=== PATIENT | female | born 1965 | race Caucasian/White ===

== ENCOUNTER 2017-08-11 05:30 | Observation (INO) | payer OTHER, BC ==
[2017-08-11] MEDS ORDERED: Iopamidol 612 MG/ML 100 ML Bottle IVPUSH ONE (05:45)
[2017-08-11] MEDS ORDERED: HYDROmorphone 1 MG/ML Syringe IVPUSH ONE ×2 (05:46→08:25)
[2017-08-11] MEDS ORDERED: Ondansetron 4 MG/2 ML SDV IV ONE ×2 (05:46→07:20)
[2017-08-11] MEDS ORDERED: Sodium Chloride 0.9% 1,000 ML IV ONE (05:47)
[2017-08-11] MEDS ORDERED: Morphine 4 MG/ML Syringe IVPUSH ONE (05:58)
--- NOTE | 2017-08-11 06:13 | EDM.PDOC ---
<Elena Evans - Last Filed: 08/11/17 06:04> ED HPI GENERAL MEDICAL PROBLEM - General Chief Complaint: Abdominal Pain Stated Complaint: ABD PAIN [id number] Time Seen by Provider: 08/11/17 05:45 Source of Information: Reports: Patient History Limitations: Reports: No Limitations - History of Present Illness INITIAL COMMENTS - FREE TEXT/NARRATIVE: ED ambulatory with sudden onset of RLQ abdominal pain at 230, one emesis one loose stool. Pain constant. Fever/chills. Nauseated. Right Lower Abdomen Pain Score (Numeric/FACES): 6 - Related Data Allergies Allergy/AdvReac Type Severity Reaction Status Date / Time No Known Allergies Allergy Verified 08/11/17 05:41 Home Meds: Home Meds . 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: - Past Surgical History GI Surgical History: Reports: Hernia Repair/Other Female Surgical History: Reports: Hysterectomy Social & Family History - Tobacco Use Smoking Status *Q: Never Smoker Second Hand Smoke Exposure: No - Caffeine Use Caffeine Use: Reports: None - Recreational Drug Use Recreational Drug Use: No ED ROS GENERAL - Review of Systems Review Of Systems: See Below Constitutional: Reports: Fever, Chills HEENT: Reports: No Symptoms Respiratory: Reports: No Symptoms Cardiovascular: Reports: No Symptoms Endocrine: Reports: No Symptoms GI/Abdominal: Reports: Abdominal Pain, Diarrhea, Nausea, Vomiting : Reports: No Symptoms Musculoskeletal: Reports: No Symptoms Skin: Reports: No Symptoms Neurological: Reports: No Symptoms ED EXAM, GI/ABD - Physical Exam Exam: See Below Exam Limited By: No Limitations General Appearance: Alert, Moderate Distress Eyes: Bilateral: EOMI Ears: Normal External Exam Nose: Normal Inspection Throat/Mouth: Normal Inspection Head: Atraumatic, Normocephalic Respiratory/Chest: No Respiratory Distress, Lungs Clear, Normal Breath Sounds Cardiovascular: Normal Peripheral Pulses, Regular Rate, Rhythm GI/Abdominal Exam: Normal Bowel Sounds, Soft, Guarding (generalized lower abdomen tender with light, greater RLQ with guarding), Tender. No: Distended Back Exam: Normal Inspection. No: CVA Tenderness (L), CVA Tenderness (R) Extremities: Normal Inspection Neurological: Alert, Oriented Psychiatric: Normal Affect Skin Exam: Warm, Dry, Intact, Normal Color Course - Vital Signs Last Recorded V/S: Last Vital Signs Temp 98.1 F 08/11/17 08:09 Pulse 60 08/11/17 08:09 Resp 18 08/11/17 08:09 BP 115/70 08/11/17 08:09 Pulse Ox 60 L 08/11/17 08:09 - Orders/Labs/Meds Labs: Laboratory Tests 08/11/17 08/11/17 08/11/17 Range/Units 05:55 05:55 05:55 WBC 15.9 H (5.0-10.0) 10^3/uL RBC 4.45 (4.2-5.4) 10^6/uL Hgb 13.8 (12.0-16.0) g/dL Hct 41.6 (37.0-47.0) % MCV 93.5 (80-100) fL MCH 31.0 (27.0-34.0) pg MCHC 33.2 (33.0-35.0) g/dL Plt Count 257 (150-450) 10^3/uL Neut % (Auto) 88.5 H (42.2-75.2) % Lymph % (Auto) 5.7 L (20.5-50.1) % [place] % (Auto) 5.0 (2-8) % Eos % (Auto) 0.7 L (1.0-3.0) % Baso % (Auto) 0.1 (0.0-1.0) % Sodium 134 L (135-145) mmol/L Potassium 3.8 (3.6-5.0) mmol/L Chloride 103 (101-111) mmol/L Carbon Dioxide 21.0 (21.0-31.0) mmol/L Anion Gap 13.8 BUN 18 (7-18) mg/dL Creatinine 0.8 (0.6-1.3) mg/dL Est Cr Clr Drug Dosing 81.81 mL/min Estimated GFR (MDRD) > 60 BUN/Creatinine Ratio 22.50 Glucose 127 H (74-105) mg/dL Lactic Acid 1.5 (0.5-2.2) mmol/L Calcium 9.0 (8.4-10.2) mg/dl Total Bilirubin 0.6 (0.2-1.0) mg/dL AST 23 (10-42) IU/L ALT 20 (10-60) IU/L Alkaline Phosphatase 61 (42-121) IU/L Total Protein 7.1 (6.7-8.2) g/dl Albumin 4.2 (3.2-5.5) g/dl Globulin 2.9 Albumin/Globulin Ratio 1.45 Amylase 48 (28-100) U/L Lipase 22 (22-51) U/L Urine Color (YELLOW) Urine Appearance (CLEAR) Urine pH (5.0-9.0) Ur Specific [place] (1.005-1.030) Urine Protein (NEGATIVE) Urine Glucose (UA) (NEGATIVE) Urine Ketones (NEGATIVE) Urine Occult Blood (NEGATIVE) Urine Nitrite (NEGATIVE) Urine Bilirubin (NEGATIVE) Urine Urobilinogen (0.2-1.0) mg/dL Ur Leukocyte Esterase (NEGATIVE) Urine RBC /HPF Urine WBC (0-5/HPF) /HPF Ur Epithelial Cells /HPF Urine Bacteria (0-FEW/HPF) /HPF 08/11/17 Range/Units 07:00 WBC (5.0-10.0) 10^3/uL RBC (4.2-5.4) 10^6/uL Hgb (12.0-16.0) g/dL Hct (37.0-47.0) % MCV (80-100) fL MCH (27.0-34.0) pg MCHC (33.0-35.0) g/dL Plt Count (150-450) 10^3/uL Neut % (Auto) (42.2-75.2) % Lymph % (Auto) (20.5-50.1) % [place] % (Auto) (2-8) % Eos % (Auto) (1.0-3.0) % Baso % (Auto) (0.0-1.0) % Sodium (135-145) mmol/L Potassium (3.6-5.0) mmol/L Chloride (101-111) mmol/L Carbon Dioxide (21.0-31.0) mmol/L Anion Gap BUN (7-18) mg/dL Creatinine (0.6-1.3) mg/dL Est Cr Clr Drug Dosing mL/min Estimated GFR (MDRD) BUN/Creatinine Ratio Glucose (74-105) mg/dL Lactic Acid (0.5-2.2) mmol/L Calcium (8.4-10.2) mg/dl Total Bilirubin (0.2-1.0) mg/dL AST (10-42) IU/L ALT (10-60) IU/L Alkaline Phosphatase (42-121) IU/L Total Protein (6.7-8.2) g/dl Albumin (3.2-5.5) g/dl Globulin Albumin/Globulin Ratio Amylase (28-100) U/L Lipase (22-51) U/L Urine Color Yellow (YELLOW) Urine Appearance Clear (CLEAR) Urine pH 5.5 (5.0-9.0) Ur Specific [place] 1.020 (1.005-1.030) Urine Protein Negative (NEGATIVE) Urine Glucose (UA) Negative (NEGATIVE) Urine Ketones 40 H (NEGATIVE) Urine Occult Blood Negative (NEGATIVE) Urine Nitrite Negative (NEGATIVE) Urine Bilirubin Negative (NEGATIVE) Urine Urobilinogen 0.2 (0.2-1.0) mg/dL Ur Leukocyte Esterase Negative (NEGATIVE) Urine RBC 0-5 /HPF Urine WBC Not seen (0-5/HPF) /HPF Ur Epithelial Cells Rare /HPF Urine Bacteria Few (0-FEW/HPF) /HPF Meds: Medications Discontinued Medications Generic Name Dose Route Start Last Admin Trade Name Freq PRN Reason Stop Dose Admin Hydromorphone HCl 1 mg 08/11/17 05:46 08/11/17 06:03 Dilaudid IVPUSH 08/11/17 05:47 Not Given ONETIME ONE Hydromorphone HCl 1 mg 08/11/17 08:25 08/11/17 08:39 Dilaudid IVPUSH 08/11/17 08:26 1 mg ONETIME ONE Administration Sodium Chloride 1,000 mls @ 999 mls/hr 08/11/17 05:47 08/11/17 05:56 Normal Saline IV 08/11/17 06:47 999 mls/hr .BOLUS ONE Administration Piperacillin Sod/Tazobactam 100 mls @ 200 mls/hr 08/11/17 08:22 08/11/17 08: 39 Sod 3.375 gm/ Sodium Chloride IV 08/11/17 08:51 200 mls/hr ONETIME ONE Administration Iopamidol 100 ml 08/11/17 05:45 Isovue-300 (61%) IVPUSH 08/11/17 05:46 ONETIME ONE Iopamidol 75 ml 08/11/17 06:25 08/11/17 06:41 Isovue-300 (61%) IVPUSH 08/11/17 06:26 75 ml ONETIME ONE Administration Metoclopramide HCl 10 mg 08/11/17 08:09 08/11/17 08:14 Reglan IVPUSH 08/11/17 08:10 10 mg ONETIME ONE Administration Morphine Sulfate 4 mg 08/11/17 05:58 08/11/17 06:01 Morphine IVPUSH 08/11/17 05:59 4 mg ONETIME ONE Administration Morphine Sulfate 2 mg 08/11/17 07:16 08/11/17 07:22 Morphine IVPUSH 08/11/17 07:17 2 mg ONETIME ONE Administration Morphine Sulfate 2 mg 08/11/17 08:02 08/11/17 08:10 Morphine IVPUSH 08/11/17 08:03 2 mg ONETIME ONE Administration Ondansetron HCl 4 mg 08/11/17 05:46 08/11/17 05:58 Zofran IV 08/11/17 05:47 4 mg ONETIME ONE Administration Ondansetron HCl 4 mg 08/11/17 07:20 08/11/17 07:25 Zofran IV 08/11/17 07:21 4 mg ONETIME ONE Administration Departure - Departure Disposition: Admitted As Inpatient 68 Clinical Impression: Appendicitis Qualifiers: Appendicitis type: acute appendicitis Acute appendicitis type: unspecified acute appendicitis type Qualified Code(s): K35.80 - Unspecified acute appendicitis - Discharge Information Forms: ED Department Discharge <Bella Morin - Last Filed: 08/11/17 09:28> Course - Radiology Interpretation Free Text/Narrative:: CT Abdomen/Pelvis: Acute Appendicitis See rad report - Re-Assessments/Exams Free Text/Narrative Re-Assessment/Exam: 08/11/17 09:26 Dr. Dean came to consult on the patient. He told the patient that he will take her to surgery to remove the appendix. Patient and sister informed of possible risks and complications by Dr. Dean, state understanding. Departure - Departure Time of Disposition: 09:28 Condition: Fair, Serious
[2017-08-11 06:23] LABS: ANION GAP 13.8; CHLORIDE,CL 103 mmol/L (101-111); SODIUM,NA 134 mmol/L (135-145)
[2017-08-11] MEDS ORDERED: Iopamidol 612 MG/ML 75 ML Bottle IVPUSH ONE (06:25)
[2017-08-11] MEDS ORDERED: Morphine 2 MG/ML Syringe IVPUSH ONE ×2 (07:16→08:02)
[2017-08-11] MEDS ORDERED: Metoclopramide 10 MG/2 ML SDV IVPUSH ONE (08:09)
[2017-08-11] MEDS ORDERED: Piperacillin/Tazobactam 3.375 GM in Sodium Chloride 0.9% 100 ML IV ONE (08:22)
[2017-08-11] MEDS ORDERED: HYDROmorphone 1 MG/ML Syringe IVPUSH PRN (09:45)
--- NOTE | 2017-08-11 10:15 | HP ---
INTRODUCTION: This 52-year-old female presented to the emergency room with the onset of significant right lower quadrant pain last evening. She has some nausea. The pain is persistent in the right lower quadrant. She has not had anything like this before. In the emergency room, white blood cell count was taken and is elevated to 15,000. She underwent a CT scan, which is consistent with acute appendicitis. PAST MEDICAL HISTORY: ALLERGIES: The patient has no allergies. CURRENT MEDICATIONS: None. PRIOR SURGERIES: Hysterectomy. FAMILY AND SOCIAL HISTORY: The patient lives here in [facility]. She does not smoke. 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 Family history is otherwise negative. REVIEW OF SYSTEMS: Negative for all systems. Cardiovascular and respiratory are normal. PHYSICAL EXAMINATION: HEENT: Clear. Chest: The lungs are clear bilaterally. Heart: Normal sinus rhythm. Abdomen: Mildly obese. She has a positive Rovsing sign and marked tenderness in the right lower quadrant to palpation. She has voluntary guarding. No evidence of hernias. Extremities: Have good range of motion. No edema. Neurologic: Grossly intact. ASSESSMENT: Acute appendicitis. PLAN: I discussed the risks, benefits, and expected outcomes of a laparoscopic appendectomy with this patient. She is currently receiving some IV antibiotics and pain control. We will set her up for operative treatment today at [facility]. [facility] /[id number]
[2017-08-11] MEDS ORDERED: Scopolamine 1.5 MG Transdermal Patch TOP ONE (10:55)
[2017-08-11] MEDS: Lactated Ringers 1,000 ML IV SCH ×2 (11:04→15:00)
[2017-08-11] MEDS ORDERED: Sodium Chloride 0.9% 10 ML Syringe FLUSH PRN (12:41)
[2017-08-11] MEDS ORDERED: Ondansetron 4 MG/2 ML SDV IV PRN (12:46)
[2017-08-11] MEDS ORDERED: Acetaminophen/oxyCODONE 325-5 MG Tab PO PRN (13:01)
[2017-08-11] MEDS: Piperacillin/Tazobactam 3.375 GM in Sodium Chloride 0.9% 100 ML IV SCH ×3 (13:05→23:50)
--- NOTE | 2017-08-11 14:18 | OR ---
DATE: 08/11/2017 PREOPERATIVE DIAGNOSIS: Acute appendicitis. POSTOPERATIVE DIAGNOSIS: Acute appendicitis. PROCEDURE: Laparoscopic appendectomy. ANESTHESIA: General. ESTIMATED BLOOD LOSS: None. SPECIMEN: Appendix. COMPLICATIONS: None. OPERATIVE FINDINGS: Acute appendicitis, nonperforated. INDICATION FOR PROCEDURE: This 52-year-old female presented to the emergency room with a 1-day history of abdominal pain. She had an elevated white blood cell count. The CT scan was consistent with acute appendicitis. PROCEDURE IN DETAIL: After adequate preparation, trocars were placed in the midline under direct vision. The abdomen was insufflated, and examination did show acute appendicitis. No other intraabdominal abnormalities were noted. A stapling device was used to transect the mesoappendix down to the base of the appendix. A second firing of the stapler was used to transect the appendix off the cecum. Hemostasis was controlled along the staple line with cautery. No other intraabdominal abnormalities were noted. The local area around the appendix was irrigated and suctioned clear. The abdomen was desufflated, and the skin was closed with absorbable suture. [facility] /[id number]
--- NOTE | 2017-08-11 17:28 | PCM.SN ---
- Free Text/Narrative Note: Feels better tonight. PO tolerated. Pain managed with medication. Will keep in IV Zosyn and plan discharge in AM.
[2017-08-12] MEDS: Piperacillin/Tazobactam 3.375 GM in Sodium Chloride 0.9% 100 ML IV SCH (05:47)
--- NOTE | 2017-08-12 08:17 | PCM.SN ---
- Free Text/Narrative Note: Feels good today. PO adequate. Pain controlled. Instructions given. May DC today.
[2017-08-12 08:23] VITALS: BP 102/52
[2017-08-12] MEDS ORDERED: Neostigmine Methylsulfate 10 MG/10 ML MDV IV ONE (09:47)
[2017-08-12] MEDS ORDERED: Glycopyrrolate 0.2 MG/ML 2 ML SDV IV ONE (09:47)
[2017-08-12] MEDS ORDERED: Ketorolac 30 MG/ML SDV IVPUSH ONE (09:47)
[2017-08-12] MEDS ORDERED: Propofol 200 MG/20 ML SDV IV ONE (09:47)
[2017-08-12] MEDS ORDERED: Rocuronium 50 MG/5 ML Vial IV ONE (09:47)
[2017-08-12] MEDS ORDERED: fentaNYL 100 MCG/2 ML SDV IV ONE (09:47)
[2017-08-12] MEDS ORDERED: Dexamethasone 4 MG/ML SDV IV ONE (09:47)
[2017-08-12] MEDS ORDERED: Midazolam 1 MG/ML 2 ML SDV IV ONE (09:47)
[2017-08-12] MEDS ORDERED: Succinylcholine 200 MG/10 ML MDV IV ONE (09:47)
--- NOTE | 2017-08-12 10:12 | PN ---
DATE: 08/12/2017 SUBJECTIVE: John Rodriguez is a 52-year-old female who was admitted for acute appendicitis on 08/11/2017. She is postop day #1 status post laparoscopic appendectomy. No overnight events per nursing staff, and the patient denies any concerns. She admits to some incisional pain. Pain is well controlled on current medications. She is tolerating p.o. fluids. She is advanced to a soft solid diet this morning. The patient is not passing gas and has not had a bowel movement. She denies fevers or chills, nausea or vomiting, shortness of breath or chest pain, calf tenderness or difficulty voiding. She is ambulating without difficulty. OBJECTIVE: Vital Signs: Afebrile overnight. T-max 99.7 degrees Fahrenheit. Other vital signs are stable. Most recent vitals; temperature 99 degrees Fahrenheit, pulse 52, blood pressure 94/50, and respiratory rate 18. General: Alert, cooperative, and in no acute distress. Lungs: Clear to auscultation bilaterally. Heart: Regular rate. S1 and S2 normal. No murmurs. Abdomen: Soft and nondistended. No rebound or guarding. Mild tenderness to deep palpation of right lower quadrant. Bowel sounds present. Extremities: Nontender. Trace edema to bilateral lower extremities. Skin: Warm and dry. Well perfused. Incisions: Three midline abdominal incisions covered with bandages. Clean, dry, and intact. ASSESSMENT: This is a 52-year-old female, postop day #1 status post laparoscopic appendectomy, doing well. PLAN: Advanced to soft solids this morning and plan for discharge today. Steri-Strips should stay on one week. She will be sent home with a prescription for Percocet as needed for pain. She was advised that she is not supposed to drive while on pain medications. She may resume activities as tolerated with no restrictions. No followup is necessary unless she begins to have problems. [facility] /[id number] [place]
--- NOTE | 2017-08-13 11:29 | DISCH ---
DATE OF OPERATION: 08/11/2017. OPERATION: Laparoscopic appendectomy. ADMITTING DIAGNOSIS: Acute appendicitis. INTRODUCTION: This 52-year-old female, presented to the emergency room with a day long history of right lower quadrant abdominal pain. She had an elevated white blood cell count, and a CT scan consistent with acute appendicitis. PHYSICAL EXAMINATION: Lungs: Clear. Heart: Clear. Abdomen: Was soft, except in the right lower quadrant. She had all the physical examination signs of acute appendicitis. PAST MEDICAL HISTORY: Otherwise, unremarkable. She is a healthy patient. SOCIAL HISTORY: Does not smoke. HOSPITAL COURSE: She was taken to the operating room on 08/11, a laparoscopic appendectomy was performed. She did indeed have acute appendicitis that was nonperforated. Postoperatively, she felt much better and on the morning of 08/12, she was able to be discharged. Instructions were given to her regarding followup and activity limitations. Percocet was given as needed for pain. [facility] /[id number]
== END 2017-08-12 09:48 | disposition home or self-care (01) ==
LOC: DL.ED 05:30 → DL.SDS 09:16 → DL.MS 09:49 → DL.SDS 16:34
PROVIDERS: ADMIT Surgery; ATTEND Surgery
DX: K35.3 Acute appendicitis with localized peritonitis (principal)
CPT/HCPCS: 36415; 44970; 74178; 80053; 81001; 82150; 83605; 83690; 85025; 96361; 96365; 96375; 96376; 99285; A9270; J0330; J1100; J1170; J1885; J2250; J2270; J2405; J2543; J2704; J2710; J2765; J3010; J7030; J7050; J7120; Q9967; G0378; J3490